=== PATIENT | female | born 1985 | race Two or more races ===

== ENCOUNTER 2020-02-19 22:16 | Emergency (ER) | payer MEDICAID ==
[~2020-02-19] VITALS: Ht 160 cm; Wt 86.2 kg
[2020-02-20 00:50] LABS: Urine Bacteria FEW /hpf (None Seen); Urine Blood Negative /uL (Negative); Urine Mucus FEW (None Seen); Urine WBC 1 /hpf (0 - 5)
[2020-02-20 00:59] LABS: Amphetamine Screen, Urine NEGATIVE (NEGATIVE); Barbiturate Scree,Urine NEGATIVE (NEGATIVE); Benzodiazephine Screen, Urine NEGATIVE (NEGATIVE); Cannabinoid Screen, Urine NEGATIVE (NEGATIVE); Cocaine Screen, Urine NEGATIVE (NEGATIVE); Opiate Scree,Urine NEGATIVE (NEGATIVE); Phencyclidine Screen, Urine NEGATIVE (NEGATIVE)
[2020-02-20 01:59] LABS: Basophils # (auto) 0.1 10 ^3/uL (0-0.2); Basophils % (auto) 0.7 % (0.0-2.0); Eosinophils # (auto) 0.2 10 ^3/uL (0-0.8); Hematocrit 35.1 % (36.0-46.0); Hemoglobin 11.8 g/dL (12.2-16.2); Lymphocytes # (auto) 2.6 10 ^3/uL (0.4-5.4); Lymphocytes % (auto) 34.5 % (10.0-50.0); Mean Corpuscular Hemoglobin 30.5 pg (28.0-32.0); Mean Corpuscular Hgb Conc. 33.5 g/dL (32.0-36.0); Mean Corpuscular Volume 90.9 fL (80.0-100.0); Monocytes # (auto) 0.5 10 ^3/uL (0-1.3); Monocytes % (auto) 6.8 % (0.0-12.0); Neutrophils # (auto) 4.3 10 ^3/uL (1.6-8.6); Nucleated Red Blood Cells % 0.1 %; Platelet Count (auto) 222 10^3/uL (140-450); Red Blood Cells 3.86 10^6/uL (4.0-5.20); Red Cell Distribution Width 13.9 % (11.8-14.3); White Blood Cell 7.6 10^3/uL (4.4-10.8)
[2020-02-20 02:17] LABS: Albumin 3.3 g/dL (3.4-5.0); BUN/Creatinine Ratio 14.6; Calcium 7.9 mg/dL (8.5-10.1); Magnesium 2.1 mg/dL (1.6-2.6); Potassium 3.4 mmol/L (3.5-5.1)
[2020-02-20 02:19] LABS: Acetaminophen < 2.0 ug/mL (10-30); Salicylate < 1.7 mg/dL (2.8-20.0)
[2020-02-20 02:20] LABS: Bilirubin, Total 0.2 mg/dL (0.2-1.0); Total Protein 6.4 g/dL (6.4-8.2)
[2020-02-20] MEDS ORDERED: LORazepam 0.5 MG TAB PO ONE ×4 (02:45→20:15)
[2020-02-20] MEDS ORDERED: SODIUM CHLORIDE 0.9% 1,000 ML IV ONE (03:00)
[2020-02-20] MEDS ORDERED: diphenhdrAMINE HCL 25 MG CAP PO ONE (21:45)
[2020-02-20] MEDS ORDERED: ACETAMINOPHEN 325 MG TAB PO ONE (21:45)
[2020-02-21] MEDS ORDERED: LORazepam 0.5 MG TAB PO PRN (11:30)
[2020-02-21] MEDS: LORazepam 0.5 MG TAB PO PRN ×2 (12:45→20:10)
[2020-02-21] MEDS ORDERED: ACETAMINOPHEN 325 MG TAB PO ONE (20:00)
[2020-02-21] MEDS ORDERED: diphenhdrAMINE HCL 50 MG/1 ML VL IV ONE (23:00)
[2020-02-22] MEDS: LORazepam 0.5 MG TAB PO PRN ×2 (09:32→09:41)
[2020-02-22] MEDS ORDERED: ONDANSETRON HCL 4 MG/2 ML VIAL IV ONE (19:45)
[2020-02-22] MEDS ORDERED: LORazepam 0.5 MG TAB PO ONE (19:45)
[2020-02-22] MEDS ORDERED: diphenhdrAMINE HCL 50 MG/1 ML VL IV ONE (19:45)
[2020-02-23] MEDS ORDERED: diphenhdrAMINE HCL 25 MG CAP PO ONE ×2 (22:45→23:01)
[2020-02-23 23:30] VITALS: BP 127/94
== END 2020-02-23 23:53 | disposition short-term general hospital (02) ==
LOC: EDBD 22:16 → ER 22:22
DX: R45.851 Suicidal ideations (principal); F32.9 Major depressive disorder, single episode, unspecified; F41.8 Other specified anxiety disorders; F10.229 Alcohol dependence with intoxication, unspecified; Z03.818 Encounter for observation for suspected exposure to other biological agents ruled out; Z91.5 Personal history of self-harm; Z59.0 Homelessness; Y90.4 Blood alcohol level of 80-99 mg/100 ml
CPT/HCPCS: 36415; 80053; 80307; 80320; 80329; 81001; 83735; 84702; 85025; 96374; 96375; 96376; 99285; C9803; J7030; U0003; J2405